=== PATIENT | male | born 1965 | race Caucasian/White ===

== ENCOUNTER 2023-05-25 00:20 | Day surgery (SDC) | payer BC, SELFPAY ==
[2023-05-10 12:10] VITALS: BMI 25.1
[2023-05-25 12:24] VITALS: BP 125/46; PULSE 63; RESP 20; TEMP 36.4; O2SAT 100; BMI 25.6
[2023-05-25] MEDS: LACTATED RINGERS 1,000 ML 150 ML IV CONT (12:35)
--- NOTE | 2023-05-25 12:40 | P.PNAN_ITS ---
Anes - Initial Pre Proc Eval Procedure: Operation Date: 05/25/23 13:30 Proposed Procedures p Colonoscopy - Hao Jade MD Date/Time: 05/25/23 12:40 Surgeon: Hao Jade MD Pre Op Diagnosis: other fecal abnormalities, neoplasm screening Patient Data Age: 57 Gender: M Height: 1.78 m Weight: 81.1 kg Last Vital Signs Temp 97.6 F 05/25/23 12:24 Pulse 63 05/25/23 12:24 Resp 20 05/25/23 12:24 BP 125/46 L 05/25/23 12:24 Pulse Ox 100 05/25/23 12:24 O2 Del Method Room Air 05/25/23 12:24 Allergies Allergy/AdvReac Type Severity Reaction Status Date / Time No Known Allergies Allergy Verified 05/25/23 12:21 Home Medications Medication Instructions Recorded Confirmed Type pilocarpine HCl 1.25 % eye drops 1 drp EACH EYE DAILY 05/10/23 05/25/23 History ([facility]) Patient hx anesthesia problems: none Family hx anesthesia problems: none Results Review: All pre-operative results and documents have been reviewed as part of the pre- operative evaluation. PMFSH Social History Social History Smoking packs per day: 1 Smoking cigarettes per day: 20.0 Smoking status: Current every day smoker Tobacco type: cigarettes Alcohol intake: current Alcohol use details: couple drinks a month Substance use: never Substance use type: does not use Living arrangements: with family Spiritual care concerns: No Anes - Eval Final PreProcedure Day of Procedure 05/25/23 12:40 Patient weight: normal Heart: regular rate and rhythm Lungs: clear to auscultation Airway: Mallampati scale class II and special considerations (Upper and lower partials, many missing teeth, none loose. ) Neurological: alert and oriented Last oral intake: >/= 8 hours ASA classification: II Emergent: no Anesthetic plan: proceed Anesthesia type and monitoring: general GIVS and standard monitoring Other findings: Cigar smoker, 4/day. Results Review: All pre-operative results and documents have been reviewed as part of the pre- operative evaluation. Informed Consent: The patient's anesthetic plan and its attendant risks and benefits were discussed with the patient/family/POA. Questions were solicited and answers provided to the satisfaction of the patient/family/POA.
--- NOTE | 2023-05-25 13:24 | P.HP_ITS ---
History of Present Illness History of Present Illness Consent: Risks, benefits, and alternatives have been discussed and questions answered. Patient agrees to proceed with procedure. Chief complaint: other fecal abnormalities, neoplasm screening Narrative: Christopher Capone is a 57 year old male here for first colonoscopy, + cologuard Review of Systems Review of Systems: All systems reviewed & are unremarkable except as noted in HPI and below PMFSH Past Medical History Medical History (Updated 05/25/23 @ 13:24 by Hao Jade MD) Positive colorectal cancer screening using Cologuard test Social History Social History Smoking packs per day: 1 Smoking cigarettes per day: 20.0 Smoking status: Current every day smoker Tobacco type: cigarettes Alcohol intake: current Alcohol use details: couple drinks a month Substance use: never Substance use type: does not use Living arrangements: with family Spiritual care concerns: No Meds Home Medications and Allergies Home Medications Medication Instructions Recorded Confirmed Type pilocarpine HCl 1.25 % eye drops 1 drp EACH EYE DAILY 05/10/23 05/25/23 History ([facility]) Allergies Allergy/AdvReac Type Severity Reaction Status Date / Time No Known Allergies Allergy Verified 05/25/23 12:21 Vital Signs Vital Signs - 24 hr 05/25/23 12:24 Temperature 97.6 F Pulse Rate 63 Respiratory Rate 20 Blood Pressure 125/46 L Pulse Oximetry 100 Oxygen Delivery Room Air Exam 2 Const: General: comfortable and no acute distress HENMT: Face/Nose/Sinus: Normal nares present Eyes: General: appearance normal, both eyes and all related structures Neck: Neck: no JVD Resp: Auscultation: clear to auscultation bilaterally Cardio: Rate: regular rate Rhythm: regular rhythm GI: Inspection: non-distended GI Palp: Yes Soft to palpation Skin: General skin exam: normal color Neuro: General: gait normal Speech: normal speech Extrem: General: normal to inspection Psych: Mental Status: mental status grossly normal Assessment and Plan Assessment and plan (1) Positive colorectal cancer screening using Cologuard test: Code(s): R19.5 - Other fecal abnormalities Status: Acute Assessment and Plan: colonoscopy
[2023-05-25 13:45] VITALS: BP 91/49; PULSE 58; RESP 22; O2SAT 99
[2023-05-25 13:55] VITALS: BP 94/54; PULSE 56; RESP 22; O2SAT 99
[2023-05-25 14:05] VITALS: BP 104/64; PULSE 58; RESP 18; O2SAT 100
== END 2023-05-25 14:19 | disposition home or self-care (01) ==
PROVIDERS: PCP Internal Medicine; Visit Provider Internal Medicine Gastroenterology
PROC: 0DJD8ZZ Inspection of Lower Intestinal Tract, Via Natural or Artificial Opening Endoscopic (ICD-10-PCS; CPT 45378; principal; 2023-05-25 13:30)
DX: D12.2 Benign neoplasm of ascending colon (principal); D12.4 Benign neoplasm of descending colon; K64.8 Other hemorrhoids; F17.210 Nicotine dependence, cigarettes, uncomplicated
CPT/HCPCS: 45385; 88305; J2704; J7120